=== PATIENT | male | born 1965 | race American Indian/Alaskan Native ===

== ENCOUNTER 2017-04-17 15:00 | Emergency (ER) | payer MEDICAID ==
[2017-04-17 16:38] LABS: Basophils % (Auto) 0.6 % (0.0-1.8); Hematocrit 36.2 % (35.5-45.6); Hemoglobin 11.8 gm/dl (11.8-15.2); Mean Corpuscular HGB Conc 33 % (32-34); Mean Corpuscular Hemoglobin 32 pg (28-32); Mean Corpuscular Volume 97 fl (84-94); Platelet Count 208 K/mm3 (140-440); Red Blood Count 3.73 M/mm3 (3.65-5.03); Red Cell Distribution Width 13.3 % (13.2-15.2)
[2017-04-17 16:56] LABS: Anion Gap 14 mmol/L; BUN/Creatinine Ratio 5.55; Blood Urea Nitrogen 5 mg/dL (9-20); Calcium 9.2 mg/dL (8.4-10.2); Carbon Dioxide 27 mmol/L (22-30); Chloride 103.7 mmol/L (98-107); Glucose 99 mg/dL (75-100); Potassium 4.1 mmol/L (3.6-5.0); Sodium 141 mmol/L (137-145)
[2017-04-17 18:13] LABS: Urine Drugs of Abuse Note Disclamer
[2017-04-17 18:21] LABS: Bilirubin,Urine NEG (Negative); Blood,Urine NEG (Negative); Ketones,Urine NEG (Negative); Leukocyte Esterase,Urine NEG (Negative); Nitrite,Urine NEG (Negative); Protein,Urine <15 mg/dL mg/dL (Negative); RBC,Urine < 1.0 /HPF (0.0-6.0); Urobilinogen,Urine < 2.0 mg/dL (<2.0); WBC,Urine < 1.0 /HPF (0.0-6.0)
--- NOTE | 2017-04-17 23:00 | Emergency Department Report ---
ED Psych HPI - General Chief Complaint: Psych Stated Complaint: EVALUATION Time Seen by Provider: 04/17/17 22:34 Source: patient Mode of arrival: Ambulatory Limitations: Other (schizophrenia) - History of Present Illness Initial Comments: 51-year-old male with a past medical history of hypertension, paranoid schizophrenia, psychosis, anxiety, epilepsy, and hyperlipidemia presents to the hospital with psychiatric complaints. Patient was referred here by [facility] by psychiatrist Dr. Borja. Accompanying the patient is a typed letter requesting hospitalization for paranoid schizophrenia predominant negative symptoms and intermittent explosive disorder. Patient's condition is chronic and persistently severe and affecting all aspects of his life. He also has decrease by mouth intake and is losing weight and it has been more confused despite lowering the dose of his medications. Patient denies any pain or physical complaints. Denies hallucinations, suicidal or homicidal ideation. - Related Data Home Medications Medication Instructions Recorded Confirmed Last Taken Divalproex ER [DepaKOTE ER] 500 mg PO BID 04/17/17 04/17/17 Unknown Haloperidol Decanoate [Haldol 100 mg IM QMONTH 04/17/17 04/17/17 Unknown Decanoate] Haloperidol [Haldol] 5 mg PO BID 04/17/17 04/17/17 Unknown [place] Carbonate ER [Lithobid ER] 300 mg PO BID 04/17/17 04/17/17 Unknown Trazodone HCl [traZODone] 300 mg PO QHS 04/17/17 04/17/17 Unknown cloZAPine 200 mg PO BID 04/17/17 04/17/17 Unknown clonazePAM [Klonopin] 1 mg PO BID 04/17/17 04/17/17 Unknown Allergies Allergy/AdvReac Type Severity Reaction Status Date / Time No Known Allergies Allergy Verified 04/17/17 16:03 ED Review of Systems ROS: Stated complaint: EVALUATION Other details as noted in HPI Comment: All other systems reviewed and negative Other: Constitutional: No fevers chills Eyes: No eye pain visual changes ENT: No ear pain or throat pain Neck: Denies pain Respiratory: Denies shortness of breath Cardiovascular: Denies chest pain GI: Denies abdominal pain : Denies dysuria Musculoskeletal: Denies back pain Skin: Denies rash, lesions, erythema Neurologic: Denies headache, numbness, weakness ED Past Medical Hx - Past Medical History Previous Medical History?: Yes Hx Hypertension: Yes Hx Headaches / Migraines: Yes Hx Seizures: Yes (Epilepsy) Hx Psychiatric Treatment: Yes (anxiety, paranoid schizophrenia, psychosis) Additional medical history: onchomyosis. hyperlipedemia. angina - Surgical History Past Surgical History?: No - Social History Smoking Status: Current Every Day Smoker - Medications Home Medications: Home Medications Medication Instructions Recorded Confirmed Last Taken Type Divalproex ER [DepaKOTE ER] 500 mg PO BID 04/17/17 04/17/17 Unknown History Haloperidol Decanoate [Haldol 100 mg IM QMONTH 04/17/17 04/17/17 Unknown History Decanoate] Haloperidol [Haldol] 5 mg PO BID 04/17/17 04/17/17 Unknown History [place] Carbonate ER [Lithobid ER] 300 mg PO BID 04/17/17 04/17/17 Unknown History Trazodone HCl [traZODone] 300 mg PO QHS 04/17/17 04/17/17 Unknown History cloZAPine 200 mg PO BID 04/17/17 04/17/17 Unknown History clonazePAM [Klonopin] 1 mg PO BID 04/17/17 04/17/17 Unknown History ED Physical Exam - General Limitations: No Limitations - Other Other exam information: General: No limitations, patient is alert in no acute distress Head exam: Atraumatic, normocephalic Eyes exam: Normal appearance, pupils equal reactive to light, extraocular movements intact ENT: Moist mucous membrane, normal oropharynx Neck exam: Normal inspection, full range of motion, no meningismus nontender Respiratory exam: Clear to auscultation bilateral, no wheezes, rales, crackles Cardiovascular: Normal rate and rhythm, normal heart sounds Abdomen: Soft, nondistended, and nontender, with normal bowel sounds, no rebound, or guarding Extremity: Full range of motion normal inspection no deformity Back: Normal Inspection, full range of motion, no tenderness Neurologic: Alert, cranial nerves intact, no motor or sensory deficit Psychiatric: Flat affect, intermittent staring episodes Skin: Warm, dry, intact ED Course Vital Signs 04/17/17 04/17/17 04/18/17 16:03 22:56 02:15 Temperature 98.8 F 98.2 F Pulse Rate 107 H 66 Respiratory 16 16 16 Rate Blood Pressure 131/90 Blood Pressure 126/84 [Left] O2 Sat by Pulse 98 99 100 Oximetry - Consultations Consultation #1: 04/17/17 23:04 Mental health consultation ED Medical Decision Making - Lab Data Result diagrams: 04/17/17 16:22 04/17/17 16:22 Lab Results 04/17/17 04/17/17 04/17/17 Range/Units 16:22 16:22 16:22 WBC 8.0 (4.5-11.0) K/mm3 RBC 3.73 (3.65-5.03) M/mm3 Hgb 11.8 (11.8-15.2) gm/dl Hct 36.2 (35.5-45.6) % MCV 97 H (84-94) fl MCH 32 (28-32) pg MCHC 33 (32-34) % RDW 13.3 (13.2-15.2) % Plt Count 208 (140-440) K/mm3 Lymph % (Auto) 24.7 (13.4-35.0) % [place] % (Auto) 11.5 H (0.0-7.3) % Eos % (Auto) 0.0 (0.0-4.3) % Baso % (Auto) 0.6 (0.0-1.8) % Lymph # 2.0 (1.2-5.4) K/mm3 [place] # 0.9 H (0.0-0.8) K/mm3 Eos # 0.0 (0.0-0.4) K/mm3 Baso # 0.0 (0.0-0.1) K/mm3 Seg Neutrophils % 63.2 (40.0-70.0) % Seg Neutrophils # 5.0 (1.8-7.7) K/mm3 Sodium 141 (137-145) mmol/L Potassium 4.1 (3.6-5.0) mmol/L Chloride 103.7 (98-107) mmol/L Carbon Dioxide 27 (22-30) mmol/L Anion Gap 14 mmol/L BUN 5 L (9-20) mg/dL Creatinine 0.9 (0.8-1.5) mg/dL Estimated GFR > 60 ml/min BUN/Creatinine Ratio 5.55 % Glucose 99 (75-100) mg/dL Calcium 9.2 (8.4-10.2) mg/dL Urine Color (Yellow) Urine Turbidity (Clear) Urine pH (5.0-7.0) Ur Specific [place] (1.003-1.030) Urine Protein (Negative) mg/dL Urine Glucose (UA) (Negative) mg/dL Urine Ketones (Negative) mg/dL Urine Blood (Negative) Urine Nitrite (Negative) Urine Bilirubin (Negative) Urine Urobilinogen (<2.0) mg/dL Ur Leukocyte Esterase (Negative) Urine WBC (Auto) (0.0-6.0) /HPF Urine RBC (Auto) (0.0-6.0) /HPF Urine Opiates Screen Urine Methadone Screen Ur Barbiturates Screen Valproic Acid (50-100) ug/mL Ur Phencyclidine Scrn Ur Amphetamines Screen U Benzodiazepines Scrn [place] (0.0-1.2) mmol/L Urine Cocaine Screen U Marijuana (THC) Screen Drugs of Abuse Note Plasma/Serum Alcohol < 0.01 (0-0.07) gm% 04/17/17 04/17/17 04/17/17 Range/Units 16:22 18:00 18:00 WBC (4.5-11.0) K/mm3 RBC (3.65-5.03) M/mm3 Hgb (11.8-15.2) gm/dl Hct (35.5-45.6) % MCV (84-94) fl MCH (28-32) pg MCHC (32-34) % RDW (13.2-15.2) % Plt Count (140-440) K/mm3 Lymph % (Auto) (13.4-35.0) % [place] % (Auto) (0.0-7.3) % Eos % (Auto) (0.0-4.3) % Baso % (Auto) (0.0-1.8) % Lymph # (1.2-5.4) K/mm3 [place] # (0.0-0.8) K/mm3 Eos # (0.0-0.4) K/mm3 Baso # (0.0-0.1) K/mm3 Seg Neutrophils % (40.0-70.0) % Seg Neutrophils # (1.8-7.7) K/mm3 Sodium (137-145) mmol/L Potassium (3.6-5.0) mmol/L Chloride (98-107) mmol/L Carbon Dioxide (22-30) mmol/L Anion Gap mmol/L BUN (9-20) mg/dL Creatinine (0.8-1.5) mg/dL Estimated GFR ml/min BUN/Creatinine Ratio % Glucose (75-100) mg/dL Calcium (8.4-10.2) mg/dL Urine Color Straw (Yellow) Urine Turbidity Clear (Clear) Urine pH 7.0 (5.0-7.0) Ur Specific [place] 1.003 (1.003-1.030) Urine Protein <15 mg/dl (Negative) mg/dL Urine Glucose (UA) Neg (Negative) mg/dL Urine Ketones Neg (Negative) mg/dL Urine Blood Neg (Negative) Urine Nitrite Neg (Negative) Urine Bilirubin Neg (Negative) Urine Urobilinogen < 2.0 (<2.0) mg/dL Ur Leukocyte Esterase Neg (Negative) Urine WBC (Auto) < 1.0 (0.0-6.0) /HPF Urine RBC (Auto) < 1.0 (0.0-6.0) /HPF Urine Opiates Screen Presumptive negative Urine Methadone Screen Presumptive negative Ur Barbiturates Screen Presumptive negative Valproic Acid 59.3 (50-100) ug/mL Ur Phencyclidine Scrn Presumptive negative Ur Amphetamines Screen Presumptive negative U Benzodiazepines Scrn Presumptive negative [place] 0.9 (0.0-1.2) mmol/L Urine Cocaine Screen Presumptive negative U Marijuana (THC) Screen Presumptive negative Drugs of Abuse Note Disclamer Plasma/Serum Alcohol (0-0.07) gm% - Medical Decision Making Patient is medically clear for psychiatric admission. 1013 and transferred form has been signed. I will continue current medication - Differential Diagnosis psychosis, schizophrenia, schizoaffective disorder Critical Care Time: No Critical care attestation.: If time is entered above; I have spent that time in minutes in the direct care of this critically ill patient, excluding procedure time. ED Disposition Clinical Impression: Acute schizophrenia episode, Medical clearance for psychiatric admission Disposition: [id number]/TX-[id number] PSY HOSP/PSY UNIT Is pt being admited?: No Does the pt Need Aspirin: No Condition: Stable Time of Disposition: 05:06 (awaiting acceptance)
[2017-04-17 23:15] LABS: Lithium 0.9 mmol/L (0.0-1.2); Valproate 59.3 ug/mL (50-100)
[2017-04-17] MEDS ORDERED: DESYREL PO ONE (23:57)
[2017-04-18] MEDS ORDERED: DESYREL PO ONE (02:18)
[2017-04-18] MEDS ORDERED: HALDOL PO SCH (10:00)
[2017-04-18] MEDS ORDERED: CLOZAPINE 200 MG PO SCH (10:00)
[2017-04-18] MEDS ORDERED: NON-FORMULARY (Clonazepam [Klonopin] 1 MG) PO SCH (10:00)
[2017-04-18] MEDS: LITHOBID ER PO SCH ×2 (10:39→22:22)
[2017-04-18] MEDS: CLOZAPINE PO SCH ×2 (12:23→22:22)
--- NOTE | 2017-04-18 16:25 | Consultation ---
History of Present Illness - Reason for Consult Consult date: 04/18/17 Reason for consult: Mental Health Evaluation Requesting physician: UMANG CHI - Chief Complaint Chief complaint: "How are you" - History of Present Psychiatric Illness 51-year-old male with a past medical history of paranoid schizophrenia and anxiety presenting to the hospital with psychiatric complaints. Patient was referred here by [facility] by psychiatrist Dr. Borja. Dr Borja wrote a letter stating the patient is experiencing paranoid schizophrenia and explosive intermittent disorder. Today the patient is anxious and irritable during the assessment. Patient kept stating, "Food taste like dog poop." Per his day care attendant Marielladorothyama Henrik from [facility] stated that the patient has lost a "lot of weight" in the last 6 months (estimating 40 to 50 lbs). She stated the patient's medications have been modified recently by Dr. Borja. She stated the last couple months the patient's appetite has been poor. She confirmed that the patient think food taste like "Dog Poop." Per Ms Chester, the patient ate a hamburger last night and his breakfast today. During the assessment, the patient left the room and stood in the middle of hallway staring , possibly responding to some type of stimuli. He denies SI/HI's and AVH's. Per Henrik, the patient have no hx of recreational drug use and alcohol consumption (etoh). Medications and Allergies Allergies Allergy/AdvReac Type Severity Reaction Status Date / Time No Known Allergies Allergy Verified 04/17/17 16:03 Home Medications Medication Instructions Recorded Confirmed Last Taken Type Divalproex ER [DepaKOTE ER] 500 mg PO BID 04/17/17 04/17/17 Unknown History Haloperidol Decanoate [Haldol 100 mg IM QMONTH 04/17/17 04/17/17 Unknown History Decanoate] Haloperidol [Haldol] 5 mg PO BID 04/17/17 04/17/17 Unknown History [place] Carbonate ER [Lithobid ER] 300 mg PO BID 04/17/17 04/17/17 Unknown History Trazodone HCl [traZODone] 300 mg PO QHS 04/17/17 04/17/17 Unknown History cloZAPine 200 mg PO BID 04/17/17 04/17/17 Unknown History clonazePAM [Klonopin] 1 mg PO BID 04/17/17 04/17/17 Unknown History Active Meds: Active Medications Clonazepam (Klonopin) 1 mg PO BID [facility] Last Admin: 04/18/17 10:39 Dose: 1 mg Clozapine (Clozapine (Nf)) 200 mg PO BID [facility] Last Admin: 04/18/17 12:23 Dose: Not Given Divalproex Sodium (Depakote Er) 500 mg PO BID [facility] Last Admin: 04/18/17 10:38 Dose: 500 mg [place] Carbonate (Lithobid Er) 300 mg PO BID [facility] Last Admin: 04/18/17 10:39 Dose: 300 mg Trazodone HCl (Desyrel) 300 mg PO QHS [facility] Past psychiatric history - Past Medical History Past Medical History: hypertension, hyperlipidemia, seizures Past Surgical History: No surgical history - past Psychiatric treatment and history Psych: Psychosis, Schizophrenia psychiatric treatment history: Patient currently seeing Dr. Borja outpatient. Unable to obtain a fam psy hx. - Social History Social history: other ([facility] at penitentiary) Mental Status Exam - Vital signs Last Vital Signs Temp 98.2 F 04/18/17 02:15 Pulse 66 04/18/17 02:15 Resp 20 04/18/17 08:32 BP 126/84 04/18/17 02:15 Pulse Ox 100 04/18/17 02:15 Results Result Diagrams: 04/17/17 16:22 04/17/17 16:22 Abnormal lab results 04/17/17 04/17/17 Range/Units 16:22 16:22 MCV 97 H (84-94) fl Day % (Auto) 11.5 H (0.0-7.3) % Day # 0.9 H (0.0-0.8) K/mm3 BUN 5 L (9-20) mg/dL All other labs normal. Assessment and Plan Assessment and plan: Impression: Historical Dx: Paranoid Schizophrenia/Intermittent Explosive Disorder. Acute psychosis. Today the patient is anxious and irritable during the assessment. UDS is negative. DDx: Unspecified Psychotic DO, R/O Bipolar Recommendation/Plan: Continue 1013. Continue current medication regimen. Medical team can investigate patient's weight loss.
[2017-04-18] MEDS ORDERED: NON-FORMULARY (Trazodone Hcl [Trazodone] 300 MG) PO SCH (22:00)
[2017-04-18] MEDS: DESYREL PO SCH (22:22)
[2017-04-19] MEDS: CLOZAPINE PO SCH ×2 (09:56→22:06)
[2017-04-19] MEDS: LITHOBID ER PO SCH ×2 (09:56→22:07)
--- NOTE | 2017-04-19 16:11 | Progress Note ---
Subjective - Reason for Consult Consult date: 04/19/17 Reason for consult: follow up - Chief Complaint Chief complaint: "I want to smoke." 51-year-old male with a past medical history of paranoid schizophrenia and anxiety initially presented to the hospital with psychiatric complaints. Patient was referred here by [facility] by psychiatrist Dr. Borja. Dr Borja wrote a letter stating the patient is experiencing paranoid schizophrenia and explosive intermittent disorder. Today the patient is anxious and irritable during the assessment. Patient left the area abruptly in response to being told he could not smoke. He asked several times. He denies SI/HI's and AVH's. Mental Status Exam - Vital signs Last Vital Signs Temp 98.4 F 04/19/17 12:00 Pulse 74 04/19/17 12:00 Resp 18 04/19/17 12:00 BP 126/74 04/19/17 12:00 Pulse Ox 98 04/19/17 12:00 Assessment and Plan ROS: (+) psychosis MSE: Appearance: irritable, anxious Behavior: regular eye contact Speech: regular rate and tone Mood: "okay" Affect: labile Thought Process: tangential, perseverative about smoking Thought Content: denies SI/HI's and AVH's, disorganized Motor Activity: restless Cognition: A/Ox 2 Insight: poor Judgment: poor Impression: Historical Dx: Paranoid Schizophrenia/Intermittent Explosive Disorder. Acute psychosis. Today the patient is anxious and irritable during the assessment. UDS is negative on arrival to the ER. Patient is eating all meals. DDx: Unspecified Psychotic DO, R/O Bipolar Recommendation/Plan: Continue 1013 and will reevaluate in 24 hours for proper disposition. Continue current medication regimen. Medical team can investigate patient's weight loss.
[2017-04-19] MEDS: DESYREL PO SCH (22:07)
[2017-04-20] MEDS: CLOZAPINE PO SCH ×2 (10:44→22:10)
[2017-04-20] MEDS: LITHOBID ER PO SCH ×2 (10:45→22:05)
--- NOTE | 2017-04-20 14:28 | Progress Note ---
Subjective - Reason for Consult Consult date: 04/20/17 Reason for consult: follow up - Chief Complaint Chief complaint: "When can I go home?" 51-year-old male with a past medical history of paranoid schizophrenia and anxiety initially presented to the hospital with psychiatric complaints. Patient was referred here by [facility] by psychiatrist Dr. Borja. Dr Borja wrote a letter stating the patient is experiencing paranoid schizophrenia and explosive intermittent disorder. Today the patient is anxious and irritable during the assessment. He denies SI/HI's and AVH's. He drools intermittently and has a shuffling gait. He denies this to be a problem. Mental Status Exam - Vital signs Last Vital Signs Temp 97.8 F 04/20/17 10:00 Pulse 82 04/20/17 10:00 Resp 20 04/20/17 12:28 BP 136/88 04/20/17 10:00 Pulse Ox 99 04/20/17 12:28 Assessment and Plan MSE: Appearance: irritable, anxious Behavior: regular eye contact Speech: regular rate and tone Mood: "okay" Affect: labile Thought Process: limited in scope Thought Content: denies SI/HI's and AVH's, impoverished Motor Activity: restless Cognition: A/Ox 2 Insight: poor Judgment: poor Impression: Historical Dx: Paranoid Schizophrenia/Intermittent Explosive Disorder. psychosis. Today the patient is anxious and irritable during the assessment. UDS is negative on arrival to the ER. Patient is eating all meals and denies a problem with his appetite. DDx: Unspecified Psychotic DO, R/O Bipolar Recommendation/Plan: Continue 1013 and will reevaluate in 24 hours for proper disposition. Continue current medication regimen. Medical team can investigate patient's weight loss. obtain collateral to determine patient's baseline. consider raghu or german
[2017-04-20] MEDS: DESYREL PO SCH (22:08)
[2017-04-21] MEDS: LITHOBID ER PO SCH ×2 (10:56→22:28)
[2017-04-21] MEDS: CLOZAPINE PO SCH ×2 (10:56→21:49)
--- NOTE | 2017-04-21 16:44 | Progress Note ---
Subjective - Reason for Consult Consult date: 04/21/17 Reason for consult: follow up - Chief Complaint Chief complaint: "When can I go home?" 51-year-old male with a past medical history of paranoid schizophrenia and anxiety initially presented to the hospital with psychiatric complaints. Patient was referred here by [facility] by psychiatrist Dr. Borja. Dr Borja wrote a letter stating the patient is experiencing paranoid schizophrenia and explosive intermittent disorder. Today the patient is irritable during the assessment. He denies SI/HI's and AVH's. He drools intermittently and has a shuffling gait. He denies this to be a problem. He wants to go home. Mental Status Exam - Vital signs Last Vital Signs Temp 98.8 F 04/20/17 22:00 Pulse 86 04/20/17 22:00 Resp 18 04/20/17 22:00 BP 143/81 04/20/17 22:00 Pulse Ox 100 04/20/17 22:00 Assessment and Plan MSE: Appearance: irritable, anxious Behavior: regular eye contact Speech: regular rate and tone Mood: "okay" Affect: constricted Thought Process: limited in scope Thought Content: denies SI/HI's and AVH's, impoverished Motor Activity: shuffling gait Cognition: A/Ox 2 Insight: poor Judgment: poor Impression: Historical Dx: Paranoid Schizophrenia/Intermittent Explosive Disorder. psychosis. Today the patient is anxious and irritable during the assessment. UDS is negative on arrival to the ER. tardive dyskinesia likely Patient is eating all meals and denies a problem with his appetite. DDx: Unspecified Psychotic DO, R/O Bipolar Recommendation/Plan: Continue 1013 and will reevaluate in 24 hours for proper disposition. Continue current medication regimen. Cogentin 0.5mg bid added for possible EPS.
[2017-04-21] MEDS: DESYREL PO SCH (21:46)
[2017-04-21] MEDS: COGENTIN PO SCH (21:48)
[2017-04-22] MEDS: COGENTIN PO SCH (10:06)
[2017-04-22] MEDS: LITHOBID ER PO SCH (10:06)
[2017-04-22] MEDS: CLOZAPINE PO SCH (10:28)
--- NOTE | 2017-04-22 12:29 | Progress Note ---
Subjective - Reason for Consult Consult date: 04/22/17 Reason for consult: Psychiatry Follow-up - Chief Complaint Chief complaint: "Can I go home today" 51-year-old male with a past medical history of paranoid schizophrenia and anxiety initially presented to the hospital with psychiatric complaints. Today patient is calm and cooperative during the assessment. He stated eating all his meals, denies drooling, and look forward to being discharged. He stated that he wanted to return to his jail. He denies SI/HI's and AVH's. Mental Status Exam - Vital signs Last Vital Signs Temp 98.9 F 04/22/17 07:57 Pulse 92 H 04/22/17 07:57 Resp 18 04/22/17 08:00 BP 131/87 04/22/17 07:57 Pulse Ox 100 04/22/17 08:00 - Exam Narrative exam: MSE: Appearance: calm, cooperative Behavior: regular eye contact Speech: regular rate and tone Mood: "fell better" Affect: flat Thought Process: limited in scope Thought Content: denies SI/HI's and AVH's Motor Activity: lying down Cognition: A/Ox 2 Insight: limited Judgment: limited Assessment and Plan Impression: Historical Dx: Paranoid Schizophrenia/Intermittent Explosive Disorder. Today patient is calm and cooperative during assessment. UDS is negative on arrival to the ER. No EPS symptoms noted. Patient is eating all meals and denies a problem with his appetite. Recommendation/Plan: Rescind 1013. Continue current medication regimen. [facility] can return to his jail and follow-up with his psychiatrist Dr Borja for outpatient services. The jail personnel can be reached at [phone].
--- NOTE | 2017-04-22 14:25 | Emergency Department Report ---
HPI - General Chief Complaint: Psych Time Seen by Provider: 04/17/17 22:34 ED Past Medical Hx - Past Medical History Previous Medical History?: Yes Hx Hypertension: Yes Hx Headaches / Migraines: Yes Hx Seizures: Yes (Epilepsy) Hx Psychiatric Treatment: Yes (anxiety, paranoid schizophrenia, psychosis) Additional medical history: onchomyosis. hyperlipedemia. angina - Surgical History Past Surgical History?: No - Social History Smoking Status: Current Every Day Smoker - Medications Home Medications: Home Medications Medication Instructions Recorded Confirmed Last Taken Type Haloperidol Decanoate [Haldol 100 mg IM QMONTH 04/17/17 04/17/17 Unknown History Decanoate] Haloperidol [Haldol] 5 mg PO BID 04/17/17 04/17/17 Unknown History cloZAPine 200 mg PO BID 04/17/17 04/17/17 Unknown History ED Review of Systems ROS: Stated complaint: EVALUATION Other details as noted in HPI Physical Exam - Physical Exam Vital Signs: Vital Signs 04/17/17 04/17/17 04/18/17 16:03 22:56 02:15 Temperature 98.8 F 98.2 F Pulse Rate 107 H 66 Respiratory 16 16 16 Rate Blood Pressure 131/90 Blood Pressure 126/84 [Left] Blood Pressure [Right] O2 Sat by Pulse 98 99 100 Oximetry 04/18/17 04/18/17 04/19/17 08:32 20:00 10:00 Temperature 98.7 F Pulse Rate 64 Respiratory 20 16 16 Rate Blood Pressure Blood Pressure 124/78 [Left] Blood Pressure [Right] O2 Sat by Pulse 100 100 Oximetry 04/19/17 04/20/17 04/20/17 12:00 00:00 10:00 Temperature 98.4 F 98.2 F 97.8 F Pulse Rate 74 76 82 Respiratory 18 16 20 Rate Blood Pressure Blood Pressure 126/74 138/80 136/88 [Left] Blood Pressure [Right] O2 Sat by Pulse 98 98 99 Oximetry 04/20/17 04/20/17 04/21/17 12:28 22:00 10:05 Temperature 98.8 F 98.3 F Pulse Rate 86 64 Respiratory 20 18 18 Rate Blood Pressure Blood Pressure 143/81 111/62 [Left] Blood Pressure [Right] O2 Sat by Pulse 99 100 96 Oximetry 04/21/17 04/22/17 04/22/17 22:00 07:57 08:00 Temperature 98.1 F 98.9 F Pulse Rate 98 H 92 H Respiratory 18 18 18 Rate Blood Pressure Blood Pressure 135/78 [Left] Blood Pressure 131/87 [Right] O2 Sat by Pulse 100 100 100 Oximetry ED Course Vital Signs 04/17/17 04/17/17 04/18/17 16:03 22:56 02:15 Temperature 98.8 F 98.2 F Pulse Rate 107 H 66 Respiratory 16 16 16 Rate Blood Pressure 131/90 Blood Pressure 126/84 [Left] Blood Pressure [Right] O2 Sat by Pulse 98 99 100 Oximetry 04/18/17 04/18/17 04/19/17 08:32 20:00 10:00 Temperature 98.7 F Pulse Rate 64 Respiratory 20 16 16 Rate Blood Pressure Blood Pressure 124/78 [Left] Blood Pressure [Right] O2 Sat by Pulse 100 100 Oximetry 04/19/17 04/20/17 04/20/17 12:00 00:00 10:00 Temperature 98.4 F 98.2 F 97.8 F Pulse Rate 74 76 82 Respiratory 18 16 20 Rate Blood Pressure Blood Pressure 126/74 138/80 136/88 [Left] Blood Pressure [Right] O2 Sat by Pulse 98 98 99 Oximetry 04/20/17 04/20/17 04/21/17 12:28 22:00 10:05 Temperature 98.8 F 98.3 F Pulse Rate 86 64 Respiratory 20 18 18 Rate Blood Pressure Blood Pressure 143/81 111/62 [Left] Blood Pressure [Right] O2 Sat by Pulse 99 100 96 Oximetry 04/21/17 04/22/17 04/22/17 22:00 07:57 08:00 Temperature 98.1 F 98.9 F Pulse Rate 98 H 92 H Respiratory 18 18 18 Rate Blood Pressure Blood Pressure 135/78 [Left] Blood Pressure 131/87 [Right] O2 Sat by Pulse 100 100 100 Oximetry ED Medical Decision Making - Lab Data Result diagrams: 04/17/17 16:22 04/17/17 16:22 - Medical Decision Making Patient 51-year-old male with schizophrenia. He's been held in the emergency department for approximately 114 hours. He's been evaluated by psychiatry. Today he is calm without any SI or HI. Psychiatry has rescinded his 1013. I will discharge this patient home. Critical care attestation.: If time is entered above; I have spent that time in minutes in the direct care of this critically ill patient, excluding procedure time. ED Disposition Clinical Impression: Acute schizophrenia episode, Medical clearance for psychiatric admission Disposition: TO HOME OR SELFCARE Is pt being admited?: No Condition: Stable Instructions: Schizophrenia (ED) Referrals: PRIMARY CARE, [Primary Care Provider] - 3-5 Days
[2017-04-22 14:28] VITALS: BP 129/83
== END 2017-04-22 14:34 | disposition home or self-care (01) ==
LOC: ED 15:02 → EEVIPCON 15:02 → ED 04-22 14:46
DX: F20.9 Schizophrenia, unspecified (principal); I10 Essential (primary) hypertension; G43.909 Migraine, unspecified, not intractable, without status migrainosus; G40.909 Epilepsy, unspecified, not intractable, without status epilepticus; F41.9 Anxiety disorder, unspecified; F17.200 Nicotine dependence, unspecified, uncomplicated
CPT/HCPCS: 36415; 80048; 80164; 80178; 80307; 81001; 85025; 99285; G0480; 80320